=== PATIENT | male | born 1985 | race Caucasian/White ===

== ENCOUNTER 2022-03-02 05:45 | Day surgery (SDC) | payer OTHER ==
[~2022-03-02] VITALS: Ht 172.7 cm; Wt 79.5 kg
[~2022-03-02 05:45] MED LIST: LAMICTAL100 MG PO; LEXAPRO20 MG PO; MELATONIN3 M3 PO; PRILOSEC OTC20 MG PO
--- NOTE | 2022-03-02 06:27 | NUR ---
2 OFFICERS [facility] ACCOMPANYING PT.
--- NOTE | 2022-03-02 08:20 | NUR ---
03/02/22 0820 Helen Hayes PT TO PACU SLEEPY BUT RESPONDS TO VERBAL STIMULUS.
--- NOTE | 2022-03-03 12:36 | OR ---
[facility] [address] [place], [place] [address] Signed DATE OF OPERATION: 03/02/2022 SURGEON: Nicky Arroyo MD PREOPERATIVE DIAGNOSIS: Chronic constipation with occasional rectal bleeding and pain on defecation; empiric treatment for fissure. POSTOPERATIVE DIAGNOSIS: Scattered minimal diverticular changes, otherwise normal, no evidence of fissure or other anorectal abnormality. PROCEDURE: Total colonoscopy to cecum with biopsy of cecum and rectum. ANESTHESIA: Intravenous sedation; fentanyl 200 mcg and Versed 10 mg. INDICATIONS: This 36-year-old white man is a prisoner at [facility] and a patient of ANGELA Fox. He was referred with complaints of chronic constipation occasionally with pain upon defecation and rectal bleeding. He was empirically treated for anal fissure with diltiazem ointment and fiber supplement. He currently has no rectal bleeding. He is admitted to undergo colonoscopy to better characterize the problem of the bleeding. He understands the risks of bleeding, infection, and perforation related to colonoscopy and wished to proceed. FINDINGS: The prep was good. Complete colonoscopy was undertaken of the cecum. There were few scattered sigmoid diverticula, but no polyps or obvious colitis. The anorectum showed no evidence of fissure, fistula, hemorrhoids, or other abnormality. DESCRIPTION OF PROCEDURE: The patient was brought to the endoscopy suite and placed in lateral decubitus position given intravenous sedation to the point of slurred speech and nystagmus. Full cardiopulmonary monitoring was undertaken. Digital rectal examination showed no palpable abnormality. An Olympus video colonoscope was passed into the rectum and manipulated throughout the colon noting scattered diverticula of the sigmoid. The scope was ultimately advanced to the cecum. The ileocecal valve and appendiceal orifice were normal. Biopsy was taken of the proximal ascending colon upon withdrawal of scope. Electronically Signed By: NICKY ARROYO MD 03/03/22 1236 PATIENT NAME: TY LEBLANC OPERATIVE REPORT DATE OF : 81 REPORT #: [id number] PHYSICIAN: NICKY ARROYO MD PCP: FREDA CHAPPELL REPORT IS CONFIDENTIAL AND NOT TO BE RELEASED WITHOUT AUTHORIZATION [facility] [address] [place], [place] [address] Signed Careful withdrawal of scope showed no sign of abnormality except for few scattered diverticula in the sigmoid on left side. Retroflexed view of the rectum was normal. Biopsies were obtained of the rectum to assess for occult colitis. The scope was carefully withdrawn through anal canal multiple times, showing no evidence of fissure and completely normal anoderm. The scope was removed, then the patient was taken to the recovery room in good condition. CONCLUDING DIAGNOSES: No evidence of active disease at this time. We will review pathology reports to assure there is no evidence of occult colitis (collagenous colitis, etc.) I would recommend that he stay on a fiber supplement such as Metamucil one scoop p.o. daily. He can return as needed at the discretion of ANGELA Fox at [facility]. MD LUZ Boucher/LALY /[id number] cc: ANGELA Fox [facility] Copies: ~ Electronically Signed By: NICKY ARROYO MD 03/03/22 1236 PATIENT NAME: TY LEBLANC OPERATIVE REPORT DATE OF : 81 REPORT #: [id number] PHYSICIAN: NICKY ARROYO MD PCP: FREDA CHAPPELL REPORT IS CONFIDENTIAL AND NOT TO BE RELEASED WITHOUT AUTHORIZATION
--- NOTE | 2022-03-06 14:53 | PATH ---
[facility] [address] [facility] [place], [place] [address] Signed SPECIMEN(S): A ASCENDING/RIGHT COLON BIOPSY SPECIMEN(S): B RECTAL BIOPSY SPECIMEN SOURCE: A. ASCENDING/RIGHT COLON BIOPSY B. RECTAL BIOPSY CLINICAL HISTORY: Constipation; probable anal fissure FINAL PATHOLOGIC DIAGNOSIS: A. Ascending/right colon biopsy: - Benign colonic mucosa, negative for specific diagnostic abnormality. B. Rectal biopsy: - Benign colonic mucosa, negative for specific diagnostic abnormality. JVR:[id number] MICROSCOPIC EXAMINATION: Histologic sections of all submitted blocks are examined by light microscopy. These findings, together with the gross examination, support the pathologic diagnosis. GROSS DESCRIPTION: Two specimens are received in two containers labeled with "KF". A. The specimen, labeled "KF, 1," and designated on the requisition "ascending/right biopsy," is received in formalin and consists of two fragments of pink-albert tissue (0.2 to 0.3 cm in greatest dimension). The specimen is submitted entirely in cassette A1. B. The specimen, labeled "KF, 2," and designated on the requisition "rectum biopsy," is received in formalin and consists of two fragments of pink-albert tissue (0.3 cm in greatest dimension). The specimen is submitted entirely in cassette B1. AC (under the direct supervision of a pathologist) The Gross Description was prepared using a voice recognition system. The report was reviewed for accuracy; however, sound-alike word errors, addition and/or deletions may occur. If there is any question about this report, please contact Client Services. PERFORMING LABORATORY: The technical component was performed by [facility], [address] [place] [id number] (CLIA# [id number]). The professional interpretation was PATIENT NAME: TY LEBLANC PATHOLOGY DATE OF : [birth year] REPORT #: [id number] PHYSICIAN: MANDA PATHOLOGY PCP: FREDA CHAPPELL REPORT IS CONFIDENTIAL AND NOT TO BE RELEASED WITHOUT AUTHORIZATION [facility] [address] [place], [place] [address] Signed performed by [facility], [facility], [facility] [address] [place] [address], [place] [address] (CLIA#: [id number]). Diagnostician: Anton Lopez MD Pathologist Electronically Signed 03/06/2022 Copies: ~ PATIENT NAME: TY LEBLANC PATHOLOGY DATE OF : [birth year] REPORT #: [id number] PHYSICIAN: MANDA PATHOLOGY PCP: FREDA CHAPPELL REPORT IS CONFIDENTIAL AND NOT TO BE RELEASED WITHOUT AUTHORIZATION
== END 2022-03-02 08:50 | disposition home or self-care (01) ==
LOC: DS 05:45 → OPS 05:45 → DS 07:30 → OPS 07:30 → DS 10:30
PROVIDERS: ATTEND Surgery
PROC: 0DBP8ZX Excision of Rectum, Via Natural or Artificial Opening Endoscopic, Diagnostic (ICD-10-PCS; 2022-03-02)
PROC: 0DBK8ZX Excision of Ascending Colon, Via Natural or Artificial Opening Endoscopic, Diagnostic (ICD-10-PCS; principal; 2022-03-02 07:30)
DX: K59.09 Other constipation (principal); K57.30 Diverticulosis of large intestine without perforation or abscess without bleeding; K60.1 Chronic anal fissure; K21.9 Gastro-esophageal reflux disease without esophagitis
CPT/HCPCS: 99153; G0500; J2250; J3010; J7121